=== PATIENT | female | born 1975 | race Caucasian/White ===

== ENCOUNTER 2019-08-06 10:36 | Emergency (ER) | payer BC ==
[~2019-08-06] VITALS: Ht 175.3 cm; Wt 122.0 kg
[2019-08-06 10:53] VITALS: BP 124/87
[2019-08-06] MEDS ORDERED: LIDOcaine 1% W/epiNEPHrine 1:200,000 10ml vial IJ ONE (12:10)
[2019-08-06] MEDS ORDERED: ondansetron 4mg rapidly disintigrating tab PO ONE (12:55)
[2019-08-06] MEDS ORDERED: ONDA4TAB6 PO (13:40)
[2019-08-06] MEDS ORDERED: SULF1TAB49 PO (13:40)
[2019-08-06] MEDS ORDERED: CEPH500C5 PO (13:40)
== END 2019-08-06 13:58 | disposition home or self-care (01) ==
LOC: ER 10:37
DX: L02.31 Cutaneous abscess of buttock (principal); R50.9 Fever, unspecified; R11.0 Nausea; Z88.8 Allergy status to other drugs, medicaments and biological substances; Z91.040 Latex allergy status; Z79.2 Long term (current) use of antibiotics; Z79.899 Other long term (current) drug therapy
CPT/HCPCS: 10060; 99283

== ENCOUNTER 2019-08-08 09:31 | Emergency (ER) | payer BC ==
[~2019-08-08] VITALS: Ht 175.3 cm; Wt 117.3 kg
[~2019-08-08 09:31] MED LIST: CEPH500C5 PO; ONDA4TAB6 PO; SULF1TAB49 PO
[2019-08-08 09:39] VITALS: BP 133/87
--- NOTE | 2019-08-08 10:05 | NUR ---
LEROY William at bedside replacing wound packing.
== END 2019-08-08 10:46 | disposition home or self-care (01) ==
LOC: ER 09:31
DX: L02.31 Cutaneous abscess of buttock (principal); Z88.8 Allergy status to other drugs, medicaments and biological substances; Z91.040 Latex allergy status; Z79.899 Other long term (current) drug therapy
CPT/HCPCS: 99281

== ENCOUNTER 2019-12-29 15:45 | Emergency (ER) | payer BC ==
[~2019-12-29] VITALS: Ht 175.3 cm; Wt 127.3 kg
[~2019-12-29 15:45] MED LIST changes: -CEPH500C5 PO; -SULF1TAB49 PO
[2019-12-29] MEDS ORDERED: iohexol 350MG/ML 100ml bottle IV ONE (19:19)
[2019-12-29 19:43] LABS: HEMOGLOBIN 9.5 g/dl (12.0-16.0); MEAN PLATELET VOLUME 8.5 FL (7.4-10.4)
[2019-12-29 19:45] LABS: BASOPHILS # (AUTO) 0.1 X10'3 (0-0.2); BASOPHILS % (AUTO) 0.7 % (0-1); EOSINOPHILS # (AUTO) 0.1 X10'3 (0-0.9); EOSINOPHILS % (AUTO) 0.6 % (0-6); LYMPHOCYTES # (AUTO) 3.9 X10'3 (1.1-4.8); LYMPHOCYTES % (AUTO) 36.4 % (21-51); MEAN CORPUSCULAR HEMOGLOBIN 19.5 PG (27.0-31.0); MEAN CORPUSCULAR HGB CONC 30.7 g/dL (33.0-36.5); MEAN CORPUSCULAR VOLUME 63.5 FL (78-98); MONOCYTES # (AUTO) 0.6 X10'3 (0-0.9); MONOCYTES % (AUTO) 5.7 % (2-12); NEUTROPHILS # (AUTO) 6.1 X10'3 (1.8-7.7); NEUTROPHILS % (AUTO) 56.6 % (42-75); PLATELET COUNT 349 X10'3 (140-440); RED BLOOD COUNT 4.88 X10'6 (4.20-5.60); RED CELL DISTRIBUTION WIDTH 20.3 % (11.5-14.5); WHITE BLOOD COUNT 10.8 X10'3 (4.5-11.0)
[2019-12-29 20:02] LABS: ALBUMIN 3.9 G/DL (3.4-5.0); ANION GAP 12 (8-16); BLOOD UREA NITROGEN 15 MG/DL (7-18); BUN/CREATININE RATIO 20.5 (6.6-38.0); CALCIUM 9.1 MG/DL (8.5-10.1); CHLORIDE 103 MMOL/L (99-107); CREATININE 0.73 MG/DL (0.40-0.90); GLUCOSE 97 MG/DL (70-104); POTASSIUM 3.5 MMOL/L (3.5-5.1); SODIUM 137 MMOL/L (135-145); TOTAL CARBON DIOXIDE 21.7 MMOL/L (24-32); TROPONIN I < 0.04 NG/ML (0.0-0.05); eGFR 87 ML/MIN
--- NOTE | 2019-12-29 20:10 | NUR ---
PT TO CT
--- NOTE | 2019-12-29 20:18 | NUR ---
PT BACK FROM CT
[2019-12-29 21:43] VITALS: BP 125/82
[2019-12-29 21:45] LABS: PLATELET ESTIMATE NORMAL
[2019-12-29 21:46] LABS: ANISOCYTOSIS 3+; MICROCYTOSIS 2+; TEAR DROP CELLS FEW
[2019-12-29 21:47] LABS: HYPOCHROMASIA 1+
== END 2019-12-29 20:15 | disposition home or self-care (01) ==
LOC: ER 15:46
DX: R06.02 Shortness of breath (principal); R09.81 Nasal congestion; D64.9 Anemia, unspecified; Z91.040 Latex allergy status; Z88.8 Allergy status to other drugs, medicaments and biological substances
CPT/HCPCS: 36415; 71046; 71275; 80048; 83880; 84484; 85008; 85025; 93005; 99285; Q9967

== ENCOUNTER 2023-11-20 22:36 | Emergency (ER) | payer BC ==
[~2023-11-20] VITALS: Ht 175.3 cm; Wt 134.6 kg
[2023-11-21] MEDS: ibuprofen tablet 400 MG TABLET PO ONE (01:58)
[2023-11-21 03:02] LABS: BASOPHILS % (AUTO) 0.5 % (0-1); EOSINOPHILS # (AUTO) 0.1 X10'3 (0-0.9); EOSINOPHILS % (AUTO) 1.3 % (0-6); HEMATOCRIT 26.2 % (35.0-45.0); HEMOGLOBIN 7.8 g/dl (12.0-16.0); LYMPHOCYTES % (AUTO) 28.7 % (21-51); MEAN CORPUSCULAR HEMOGLOBIN 17.5 PG (27.0-31.0); MEAN CORPUSCULAR HGB CONC 29.7 g/dL (33.0-36.5); MEAN CORPUSCULAR VOLUME 58.9 FL (78-98); MEAN PLATELET VOLUME 8.3 FL (7.4-10.4); MONOCYTES # (AUTO) 1.1 X10'3 (0-0.9); MONOCYTES % (AUTO) 15.1 % (2-12); NEUTROPHILS # (AUTO) 3.9 X10'3 (1.8-7.7); NEUTROPHILS % (AUTO) 54.4 % (42-75); PLATELET COUNT 315 X10'3 (140-440); RED BLOOD COUNT 4.45 X10'6 (4.20-5.60); RED CELL DISTRIBUTION WIDTH 19.9 % (11.5-14.5); WHITE BLOOD COUNT 7.1 X10'3 (4.5-11.0)
[2023-11-21 03:23] LABS: ALBUMIN 3.3 G/DL (3.4-5.0); ANION GAP 8 (8-16); BLOOD UREA NITROGEN 7 MG/DL (7-18); BUN/CREATININE RATIO 11.5 (10.0-20.0); CALCIUM 8.7 MG/DL (8.5-10.1); CHLORIDE 105 MMOL/L (99-107); CREATININE 0.61 MG/DL (0.40-0.90); GLUCOSE 105 MG/DL (70-104); POTASSIUM 3.6 MMOL/L (3.5-5.1); PRO BRAIN NATRIURETIC PEPTIDE 49 PG/ML (0-125); SODIUM 139 MMOL/L (135-145); TOTAL CARBON DIOXIDE 26.2 MMOL/L (24-32); eCRCL 119 ML/MIN; eGFR > 90 ML/MIN
[2023-11-21] MEDS ORDERED: FERR-119 PO (03:59)
[2023-11-21 04:02] VITALS: BP 145/58; PULSE 98; RESP 18; TEMP 98.6; O2SAT 99
[2023-11-21 04:26] LABS: ANISOCYTOSIS 2+; PLATELET ESTIMATE NORMAL; TOTAL CELLS COUNTED 100
[2023-11-21 04:27] LABS: HYPOCHROMASIA 1+; MICROCYTOSIS 3+
[2023-11-21 04:28] LABS: LARGE PLATELETS FEW
== END 2023-11-21 04:03 | disposition home or self-care (01) ==
LOC: ER 22:36
DX: U07.1 COVID-19 (principal); R06.00 Dyspnea, unspecified; Z88.8 Allergy status to other drugs, medicaments and biological substances; Z91.040 Latex allergy status; Z79.899 Other long term (current) drug therapy
CPT/HCPCS: 36415; 71045; 80048; 83880; 85007; 85025; 99284